=== PATIENT | female | born 1980 | race Caucasian/White ===

== ENCOUNTER 2016-05-27 22:01 | Emergency (ER) | payer OTHER ==
[2016-05-27] MEDS ORDERED: SODIUM CHLORIDE 0.9% 1,000 ML ONE (22:42)
== END 2016-05-28 02:13 | disposition home or self-care (01) ==
LOC: ER 22:01
DX: G40.309 Generalized idiopathic epilepsy and epileptic syndromes, not intractable, without status epilepticus (principal); Z72.820 Sleep deprivation; R69 Illness, unspecified; S09.8XXA Other specified injuries of head, initial encounter; Z79.899 Other long term (current) drug therapy
CPT/HCPCS: 36415; 70450; 80053; 81001; 82947; 85025; 87088; 93005; 96360; 96361